=== PATIENT | female | born 2000 | race American Indian/Alaskan Native ===

== ENCOUNTER 2022-10-01 11:31 | Observation (INO) | payer OTHER ==
[~2022-10-01] VITALS: Ht 167.6 cm; Wt 88.9 kg
[~2022-10-01 11:31] MED LIST: DOCU100C16 PO; ERGO500029 PO; FERR32TA PO; ceFAZolin SOD 2 GM in IV 1 EA IV ONE
[2022-10-01] MEDS ORDERED: LR 1,000 ML IV SCH ×2 (12:10→17:25)
[2022-10-01] MEDS ORDERED: fentaNYL 100 MCG/2 ML INJECTION As Ordered ONE (12:37)
[2022-10-01] MEDS ORDERED: MIDAZOLAM INJ 2MG/2ML VIAL As Ordered ONE (12:37)
[2022-10-01] MEDS ORDERED: LIDOCAINE 2% 100MG/5ML SDV (FOR ANES.) As Ordered ONE (12:38)
[2022-10-01] MEDS ORDERED: propofoL 200 MG/20 ML VIAL As Ordered ONE (12:38)
[2022-10-01] MEDS ORDERED: ROCURONIUM BROMIDE 50MG/5ML VIAL As Ordered ONE (12:38)
[2022-10-01] MEDS ORDERED: SUGAMMADEX SODIUM 500 MG/5 ML VIAL (BRIDION) As Ordered ONE (12:38)
[2022-10-01] MEDS ORDERED: ONDANSETRON 4MG 2ML VIAL As Ordered ONE (12:41)
[2022-10-01] MEDS ORDERED: HEPARIN SOD (PORCINE) 5000UNITS/ML 1ML VIAL/SYRINGE SQ ONE (12:45)
[2022-10-01] MEDS ORDERED: BUPIVACAINE HCL 0.25% 10ML VIAL As Ordered ONE (13:17)
[2022-10-01] MEDS ORDERED: GENTAMICIN SULF 80MG/2ML VIAL As Ordered ONE (13:17)
[2022-10-01] MEDS ORDERED: BUPIVACAINE LIPOSOME/PF 1.3% 20ML VIAL (13.3MG/ML)(EXPAREL) As Ordered ONE (13:18)
[2022-10-01] MEDS ORDERED: HYDROmorphone HCL 2MG/ML 1ML VIAL As Ordered ONE (14:19)
[2022-10-01] MEDS ORDERED: ePHEDrine SULFATE 25 MG/5 ML(5MG/ML) SYRINGE As Ordered ONE (16:10)
[2022-10-01] MEDS ORDERED: HYDROMORPHONE HCL 0.5 MG/ 0.5 ML SYRINGE IV PRN (17:25)
[2022-10-01] MEDS ORDERED: oxyCODONE 5MG TAB PO PRN (17:25)
[2022-10-01] MEDS ORDERED: ONDANSETRON 4MG 2ML VIAL IV PRN ×2 (17:25→17:35)
[2022-10-01] MEDS ORDERED: fentaNYL 100 MCG/2 ML INJECTION IV PRN (17:25)
[2022-10-01] MEDS ORDERED: PERCOCET 5MG/325MG TAB PO PRN (17:35)
[2022-10-01] MEDS ORDERED: traMADol 50 MG TAB PO PRN (17:35)
[2022-10-01] MEDS: LR 1,000 ML IV SCH (18:33)
[2022-10-01 19:40] VITALS: BP 114/66
[2022-10-01] MEDS: ACETAMINOPHEN TAB 650MG DOSE (2X325MG) PO PRN (20:32)
[2022-10-01 20:56] VITALS: BP 105/59
[2022-10-01 22:06] VITALS: BP 102/55
[2022-10-01] MEDS: ceFAZolin SOD 1 GM in D5W MINI-BAG PLUS 50 ML IV SCH (22:13)
[2022-10-01 23:00] VITALS: BP 100/54
[2022-10-02 01:22] VITALS: BP 98/56
[2022-10-02] MEDS: ACETAMINOPHEN TAB 650MG DOSE (2X325MG) PO PRN ×2 (04:06→13:31)
[2022-10-02 05:18] VITALS: BP 101/50
[2022-10-02] MEDS: ceFAZolin SOD 1 GM in D5W MINI-BAG PLUS 50 ML IV SCH (06:08)
[2022-10-02] MEDS: LR 1,000 ML IV SCH (07:55)
[2022-10-02] MEDS ORDERED: TRAM50TA2 PO (10:22)
== END 2022-10-02 13:30 | disposition home or self-care (01) ==
LOC: M SDC 11:31 → EDUNIT# 12:15 → M MS5PR 17:33
PROVIDERS: ADMIT Plastic Surgery Surgery of the Hand; ATTEND Plastic Surgery Surgery of the Hand
DX: N62 Hypertrophy of breast (principal); F64.0 Transsexualism
CPT/HCPCS: 19318; 81025; 87635; 88305; 96361; 96365; 96366; C9290; J0690; J1100; J1170; J1580; J2250; J2405; J3010; S0020